=== PATIENT | female | born 1990 | race Hispanic/Latino ===

== ENCOUNTER 2017-04-28 11:55 | Emergency (ER) | payer OTHER ==
[~2017-04-28] VITALS: Ht 152.4 cm; Wt 101.2 kg
[~2017-04-28 11:55] MED LIST: CYCLOBENZAPRINE10 M1 PO; PRENATAL ONE D1 EACH PO
[2017-04-28 12:01] VITALS: BP 116/75
== END 2017-04-28 14:31 | disposition admitted as inpatient to this hospital (09) ==
LOC: ERH 11:55
DX: M54.9 Dorsalgia, unspecified (principal)
CPT/HCPCS: 81001; 81025; 99281